=== PATIENT | male | born 1995 | race Caucasian/White ===

== ENCOUNTER 2016-12-23 23:24 | Emergency (ER) | payer MEDICAID ==
[~2016-12-23] VITALS: Ht 172.7 cm; Wt 66.0 kg
[2016-12-24] MEDS ORDERED: HYDROCODONE/ACETAMINOPHEN 10/325MG TABLET PO ONE (01:30)
[2016-12-24 05:45] VITALS: BP 111/67
== END 2016-12-24 05:50 | disposition home or self-care (01) ==
LOC: ER 23:24
DX: M25.531 Pain in right wrist (principal); F12.10 Cannabis abuse, uncomplicated; Y08.09XA Assault by strike by other specified type of sport equipment, initial encounter; Y93.89 Activity, other specified; Y92.89 Other specified places as the place of occurrence of the external cause; Y99.8 Other external cause status
CPT/HCPCS: 73110; 73130; 99284

== ENCOUNTER 2020-02-01 16:35 | Emergency (ER) | payer MEDICAID ==
[~2020-02-01] VITALS: Ht 172.7 cm; Wt 66.0 kg
[2020-02-01] MEDS ORDERED: IBUPROFEN 600MG TABLET PO ONE (17:45)
[2020-02-01 17:54] VITALS: BP 172/102
== END 2020-02-01 18:55 | disposition home or self-care (01) ==
LOC: ER 16:35
DX: S93.402A Sprain of unspecified ligament of left ankle, initial encounter (principal); X50.1XXA Overexertion from prolonged static or awkward postures, initial encounter; Y93.01 Activity, walking, marching and hiking; Y92.9 Unspecified place or not applicable
CPT/HCPCS: 73610; 73630; 99284